=== PATIENT | male | born 1965 | race Caucasian/White ===

== ENCOUNTER 2024-11-25 14:25 | Emergency (ER) | payer OTHER ==
[~2024-11-25] VITALS: Ht 170.2 cm; Wt 77.1 kg
[~2024-11-25 14:25] MED LIST: FEXPSEER PO; PRAV20 PO; Prednisone20 MG PO; Zithromax250 MG PO
[2024-11-25] MEDS ORDERED: Oxymetazoline 0.05% Nasal Relief Spray 15mL BTL ONE (15:05)
[2024-11-25] MEDS ORDERED: Silver Nitr/Potassium Nitrate 1 EA APPL TOP ONE (15:55)
[2024-11-25] MEDS ORDERED: Tranexamic Acid 1000 MG/10 ML 10ML Vial (SDV) ONE (15:55)
[2024-11-25] MEDS ORDERED: Tranexamic Acid 1000 MG/10 ML 10ML Vial (SDV) TOP ONE (16:00)
[2024-11-25 17:15] VITALS: BP 146/94
[2024-11-25] MEDS ORDERED: LEVSOD150 (18:39)
== END 2024-11-25 17:31 | disposition home or self-care (01) ==
LOC: ER 14:25
DX: R04.0 Epistaxis (principal); Z88.7 Allergy status to serum and vaccine; Z79.899 Other long term (current) drug therapy
CPT/HCPCS: 30905; 99283-25; A9270